=== PATIENT | female | born 1990 | race Asian ===

== ENCOUNTER 2023-08-08 15:12 | Inpatient (IN) | payer MEDICAID ==
[~2023-08-08 15:12] MED LIST: Bupivacaine 0.25% HCL 30 ML VIAL ONE
[2023-08-08 15:50] VITALS: BMI 27.0
[2023-08-08] MEDS ORDERED: hydrALAZINE 20 MG/ML VIAL SLOW IVP PRN ×2 (16:08→17:55)
[2023-08-08 16:26] LABS: Bilirubin Neg (Negative); Blood, Urine 10 (Negative); Clarity Clear (Clear); Glucose, Urine (Dipstick) 50 mg/dL (Negative); Ketone, Urine Negative (Negative); Leukocyte 25 (Negative); Nitrite Negative (Negative); Protein, Urine (Dipstick) 15 mg/dl (Neg-Trace); Specific Gravity, Urine 1.015 (1.005-1.030); Urobilinogen Normal mg/dL (Less than 2)
[2023-08-08 16:32] LABS: Amphetamine Not Detected (NotDetected); Barbiturates Screen Not Detected (NotDetected); Benzodiazepine Screen Not Detected (NotDetected); Cocaine Metabolite Screen Not Detected (NotDetected); Methadone Not Detected (NotDetected); Methamphetamine Not Detected (NotDetected); Opiate Screen Not Detected (NotDetected); Oxycodone Screen Not Detected (NotDetected); Phencyclidine (PCP) Not Detected (NotDetected); THC/Cannabinoid Screen Not Detected (NotDetected); Tricyclic Screen Not Detected (NotDetected)
[2023-08-08 16:35] LABS: Bacteria/HPF 1+ HPF (None Seen); CAUTI Indications for Culture Pregnancy; RBC/HPF 0-3 HPF (0-3); Squamous Epithelial 0-3 HPF (0-3)
[2023-08-08 16:37] LABS: Urine Culture Reflex Yes Yes
[2023-08-08 17:34] LABS: #Eosinphils 0.1 10x3/uL (0.0-0.5); #Monocytes 0.7 10x3/uL (0.0-1.1); #Neutrophils 6.2 10x3/uL (1.5-8.4); %Basophils 0.4 % (0.0-2.0); %Eosinophils 0.9 % (0.0-6.0); %Lymphocytes 17.6 % (18.0-47.0); %Monocytes 8.5 % (0.0-10.0); %Neutrophils 72.1 % (40.0-75.0); Hematocrit 34.7 % (34.9-44.5); Mean Corpuscular HGB CONC 34.6 g/dL (32.0-36.0); Mean Corpuscular Hemoglobin 31.6 pg (27.0-33.0); Mean Corpuscular Volume 91.3 fl (81.6-98.3); Mean Platelet Volume 10.7 fl (7.4-10.4); Platelet Count 274 10x3/uL (150-450); RBC Distribution Width 14.6 % (11.5-14.5); White Blood Cell (WBC) Count 8.6 10x3/uL (3.5-10.5)
[2023-08-08] MEDS ORDERED: Zolpidem Tartrate 5 MG TAB PO PRN (17:55)
[2023-08-08] MEDS ORDERED: Ondansetron PF 4 MG/2 ML Vial IVP PRN ×2 (17:55→20:40)
[2023-08-08] MEDS ORDERED: Docusate 100 MG CAP PO PRN (17:55)
[2023-08-08] MEDS ORDERED: Promethazine HCl 25 MG/ML VIAL IM PRN ×2 (17:55→20:40)
[2023-08-08] MEDS ORDERED: Misoprostol 200 MCG TAB PR PRN (17:55)
[2023-08-08] MEDS ORDERED: Diphenoxylate HCl/Atropine Tablet PO PRN (17:55)
[2023-08-08] MEDS ORDERED: Lidocaine 1% (PF) 30 ML VIAL SC PRN (17:55)
[2023-08-08] MEDS ORDERED: Methylergonovine 0.2 MG/ML VIAL IM PRN (17:55)
[2023-08-08] MEDS ORDERED: Carboprost 250 MCG/ML AMP IM PRN (17:55)
[2023-08-08] MEDS ORDERED: Acetaminophen 500 MG TAB PO PRN (17:55)
[2023-08-08] MEDS ORDERED: Oxytocin 30 units/NS 500 ML 500 ML IV SCH (18:00)
[2023-08-08] MEDS ORDERED: Penicillin G Potassium 5 MILL.UNITS in Sodium Chloride 0.9% 100 ML IVPB SCH (18:00)
[2023-08-08 18:02] LABS: Syphilis Antibody Nonreactive (Nonreactive); Syphilis Antibody Index 0.08 S/CO (<1.00 Non-Reactive)
[2023-08-08 18:08] LABS: HIV (1/2) Antibody/Antigen Non-Reactive (NonReactive); HIV 1/2 INDEX 0.12 S/CO (<1.00); Hep B Surf Ag - L&D Non-Reactive S/CO (NonReactive)
[2023-08-08] MEDS: Lactated Ringer's 1,000 ML IV SCH ×2 (18:29→20:33)
[2023-08-08] MEDS ORDERED: fentaNYL/Ropivacaine Epidural 100 ML ONE (19:15)
[2023-08-08] MEDS ORDERED: Naloxone HCl 0.4 mg/ml Vial IVP PRN ×2 (20:40)
[2023-08-08] MEDS ORDERED: Acetaminophen 325 MG TAB PO PRN (20:40)
[2023-08-08] MEDS ORDERED: Moisturizing Cream (Eucerin) 113 GM JAR TOP PRN (20:40)
[2023-08-08] MEDS ORDERED: ePHEDrine Sulfate 50 MG/10 ML VIAL SLOW IVP PRN (20:40)
[2023-08-08] MEDS ORDERED: diphenhydrAMINE 50 MG/ML VIAL IVP PRN (20:40)
[2023-08-08] MEDS ORDERED: Lactated Ringer's 500 ML IV PRN (20:40)
[2023-08-08] MEDS ORDERED: Communication Order-Pharmacy FS SCH (20:45)
[2023-08-08] MEDS ORDERED: fentaNYL 2 mcg/Ropivacaine 0.2% Epidural 100 ML CADD EPIDURAL SCH (20:45)
[2023-08-08] MEDS ORDERED: Penicillin G 2.5 MILL.units 2.5 MILL.UNITS in Premix 1 BAG IVPB SCH (22:00)
[2023-08-09] MEDS: Oxytocin 30 units/NS 500 ML 500 ML IV SCH ×2 (01:15→01:50)
[2023-08-09] MEDS ORDERED: hydrALAZINE 20 MG/ML VIAL SLOW IVP PRN (01:26)
[2023-08-09] MEDS ORDERED: Boostrix 0.5 ML (Tdap) VIAL (>/=7 yrs of age) IM ONE (01:26)
[2023-08-09] MEDS ORDERED: Bisacodyl 10 MG SUPP PR PRN (01:26)
[2023-08-09] MEDS ORDERED: Milk Of Magnesia 30 ML UDCUP PO PRN (01:26)
[2023-08-09] MEDS ORDERED: Ibuprofen 800 MG TAB PO SCH (03:30)
[2023-08-09] MEDS: Ibuprofen 800 MG TAB PO SCH ×3 (06:50→21:23)
[2023-08-09] MEDS: Docusate 100 MG CAP PO SCH ×2 (09:29→21:23)
[2023-08-09 15:07] LABS: Chlamydia by PCR, Vaginal Swab Not Detected (NotDetected); GC by PCR, Vaginal Swab Not Detected (NotDetected)
[2023-08-10 03:36] LABS: #Eosinphils 0.1 10x3/uL (0.0-0.5); #Monocytes 0.8 10x3/uL (0.0-1.1); #Neutrophils 6.9 10x3/uL (1.5-8.4); %Basophils 0.2 % (0.0-2.0); %Eosinophils 1.3 % (0.0-6.0); %Lymphocytes 20.3 % (18.0-47.0); %Monocytes 7.9 % (0.0-10.0); %Neutrophils 69.7 % (40.0-75.0); Hematocrit 27.6 % (34.9-44.5); Hemoglobin 9.4 g/dL (12.0-15.5); Mean Corpuscular HGB CONC 34.1 g/dL (32.0-36.0); Mean Corpuscular Hemoglobin 31.6 pg (27.0-33.0); Mean Corpuscular Volume 92.9 fl (81.6-98.3); Mean Platelet Volume 10.6 fl (7.4-10.4); Platelet Count 194 10x3/uL (150-450); RBC Distribution Width 14.8 % (11.5-14.5); Red Blood Cell (RBC) Count 2.97 10x6/uL (3.90-5.03); White Blood Cell (WBC) Count 9.9 10x3/uL (3.5-10.5)
[2023-08-10] MEDS: Ibuprofen 800 MG TAB PO SCH ×2 (05:44→13:13)
[2023-08-10 08:01] VITALS: BP 107/55; TEMP 98.4
[2023-08-10] MEDS: Ferrous Sulfate 325 MG TAB PO SCH ×2 (08:01→08:10)
[2023-08-10] MEDS: Docusate 100 MG CAP PO SCH (08:01)
[2023-08-10 15:28] LABS: Group B Streptococcus by PCR Not Detected (NotDetected)
== END 2023-08-10 14:55 | disposition home or self-care (01) | DRG 807 ==
LOC: CSHLD/OP 15:12 → CSHLD 18:34 → CSHPP 08-09 04:20
PROVIDERS: ADMIT Obstetrics & Gynecology; ATTEND Obstetrics & Gynecology
PROC: 10E0XZZ Delivery of Products of Conception, External Approach (ICD-10-PCS; principal; 2023-08-09)
PROC: 0KQM0ZZ Repair Perineum Muscle, Open Approach (ICD-10-PCS; 2023-08-09)
DX: O69.81X0 Labor and delivery complicated by cord around neck, without compression, not applicable or unspecified (principal); Z37.0 Single live birth; Z3A.39 39 weeks gestation of pregnancy; O70.1 Second degree perineal laceration during delivery
CPT/HCPCS: 36415; 51702; 76815; 76819; 80306; 81001; 85025; 86762; 86780; 86850; 86900; 86901; 87086; 87340; 87389; 87491; 87591; 87653; 99285; J2540; J2590; J3490; J7120; S0020